=== PATIENT | male | born 1940 | race Caucasian/White ===

== ENCOUNTER 2018-12-27 02:50 | Observation (INO) | payer MEDICARE ==
[2018-12-27 03:35] LABS: Mean Corpuscular Volume 96.4 fL (78.0-98.0)
[2018-12-27 03:39] LABS: Hemoglobin 15.6 g/dL (14.0-18.0)
[2018-12-27 03:45] LABS: ALT (SGPT) 63 U/L (8-55); AST (SGOT) 106 U/L (5-34); Albumin 3.9 g/dL (3.4-4.8); Alkaline Phosphatase 88 U/L (40-150); Anion Gap 13 mmol/L (10-20); BUN (Urea Nitrogen) 15 mg/dL (8.4-25.7); Bilirubin, Total 0.4 mg/dL (0.2-1.2); Calc. Creatinine Clearance 0 mL/min (70-130); Calcium 9.5 mg/dL (7.8-10.44); Carbon Dioxide 25 mmol/L (23-31); Chloride 108 mmol/L (98-107); Estimated GFR-MDRD Greater than 90; Globulin 2.2 g/dL (2.4-3.5); Glucose 119 mg/dL (83-110); Potassium 3.8 mmol/L (3.5-5.1); Protein, Total 6.1 g/dL (5.8-8.1); Sodium 142 mmol/L (136-145)
[2018-12-27 03:49] LABS: #Eosinphils 0.2 thou/uL (0.0-0.7); #Lymphocytes 1.3 thou/uL (1.20-3.40); #Monocytes 0.5 thou/uL (0.11-0.59); #Neutrophils 6.6 thou/uL (1.40-6.50); %Basophils 0.3 % (0.0-1.0); %Eosinophils 2.5 % (0.0-10.0); %Lymphocytes 14.7 % (21.0-51.0); %Monocytes 6.3 % (0.0-10.0); %Neutrophils 76.4 % (42.0-75.0); Mean Corpuscular HGB CONC 33.6 g/dL (32.0-36.0); Mean Corpuscular Hemoglobin 32.4 pg (27.0-31.0); Mean Platelet Volume 9.6 fL (7.4-10.4); Platelet Count 109 thou/uL (130-400); Platelet Morphology Comment Appears Decreased; RBC Distribution Width 11.5 % (11.5-14.5); RBC Morphology Normal; Red Blood Cell (RBC) Count 4.81 mill/uL (4.70-6.10); White Blood Cell (WBC) Count 8.6 thou/uL (4.8-10.8)
[2018-12-27 03:50] LABS: Troponin I Less than 0.010 ng/mL (< 0.028)
[2018-12-27] MEDS ORDERED: Nitroglycerin 0.4 MG TAB (25 Tab Bottle) SL PRN (06:54)
[2018-12-27] MEDS ORDERED: Ondansetron PF 4 MG/2 ML Vial IVP PRN (06:54)
[2018-12-27] MEDS ORDERED: Ondansetron ODT 4 MG TAB PO PRN (06:55)
--- NOTE | 2018-12-27 07:44 | RAD ---
XR Chest 1 View Portable History: Chest pain Comparison: None. Findings: Mild elevation left hemidiaphragm. No pneumothorax or effusion. No consolidation. Multiple midline sternotomy wires. No acute osseous abnormality. Impression: Likely chronic elevation left hemidiaphragm. No acute intrathoracic abnormality.
[2018-12-27 08:05] LABS: Troponin I 0.015 ng/mL (< 0.028)
[2018-12-27] MEDS ORDERED: Acetaminophen 325 MG TAB PO PRN (09:11)
[2018-12-27] MEDS ORDERED: Lisinopril 10 MG TAB PO SCH (09:30)
[2018-12-27] MEDS ORDERED: Aspirin 81 mg Enteric Coated Tablet PO SCH (09:30)
[2018-12-27 10:46] LABS: Troponin I Less than 0.010 ng/mL (< 0.028)
[2018-12-27 11:29] VITALS: BMI 25.2
--- NOTE | 2018-12-27 13:08 | HP ---
CHIEF COMPLAINT: Chest pain. HISTORY OF PRESENT ILLNESS: This patient is a 78-year-old male, who presented via the emergency department by way of an ambulance and then helicopter. The patient lives in [facility]. He has a history of coronary artery disease with a 4-vessel [place] [address] Sears. The patient reports that he did not have a myocardial infarction prior to his surgery. He had angina and he sought help with assembly adjuster, Dr. Nima Preciado at phone #[phone]. At that time, the patient had a stress test, which he failed and subsequently underwent the bypass grafting. The patient was in his usual state of good health, in fact, recently went on a cruise. However, on the day of admission, the patient awoke around 2:00 in the morning to go to the bathroom and had severe 10/10 chest pain, which felt like an elephant sitting on his chest. He denied shortness of breath or nausea, but he had pallor and severe diaphoresis and radiation of the pain to the back. The patient subsequently awoke his , she called 911. She also gave him four baby aspirins to chew. She called the ambulance and on their arrival, the patient had EKG, subsequently got sublingual nitroglycerin. They called in a helicopter and took him around the corner to be airlifted here. He reports he had some improvement with the initial nitroglycerin in the ambulance. He got a nitroglycerin spray in the helicopter, which essentially relieved his pain. He is currently completely pain free. REVIEW OF SYSTEMS: All systems reviewed. All pertinent positives and negatives noted in the HPI. PAST MEDICAL HISTORY: Notable for the above-mentioned coronary artery disease. I spoke with his assembly adjuster, Dr. Preciado, who said he did actually have a stress test in December of 2015. At that time, he had some mild lateral ischemia, which they attributed to some known OM branch disease that was a poor target and the choice was made to treat him medically at that time. He has apparently done well subsequent to that until this particular episode. He also has hypertension. He had a small stroke in 1997, which has affected his balance. PAST SURGICAL HISTORY: Four-vessel CABG [place] [address] Sears, cholecystectomy in 2014. FAMILY HISTORY: Father had hypertension, diabetes, and kidney failure. His mother had cancer. SOCIAL HISTORY: The patient started smoking when he was 15 years of age. He smoked less than a pack per day. He quit in the early 90s. He is a daily consumer of alcohol, preferring vodka and bourbon, and he typically has 1 to 2 drinks per night. He denies any history of drugs. He is . He is full code and his would be his surrogate decision maker. CURRENT MEDICATIONS: 1. CoQ10 100 mg daily. 2. Crestor 5 mg daily. 3. Omeprazole 20 mg daily. 4. Metoprolol 100 mg daily. 5. Aspirin 81 mg daily. 6. Lisinopril 10 mg daily. PHYSICAL EXAMINATION: VITAL SIGNS: Temperature is 97.6, pulse 60, respirations 18, O2 saturation 98% on 2 L nasal cannula, and BP 123/61. GENERAL APPEARANCE: Healthy, age-appropriate male, in no distress. He is a bit hard of hearing, but awake, alert, and oriented. HEENT: CORNELIO. No OP lesions. Dry oral mucosa, but he is a mouth breather. NECK: Supple and symmetric with no lymphadenopathy, JVD, or bruits. HEART: Regular rate and rhythm without murmurs, gallops, or rubs. LUNGS: Clear to auscultation bilaterally with no wheezes or rales. ABDOMEN: Soft, nontender, and nondistended. Positive bowel sounds. No masses. No organomegaly. EXTREMITIES: No cyanosis, clubbing, or edema. PSYCHIATRIC: Normal affect and behavior. NEUROLOGIC: Spontaneous movement of all extremities. He has no focal deficits, and cognition is normal. LABORATORY DATA: White count 8.6, hemoglobin 15.6, platelets 109. Sodium 142, potassium 3.8, chloride 108, CO2 of 25, BUN 15, creatinine 0.77, glucose 119, calcium 9.5, total bilirubin 0.4, AST is 106, ALT 63, alkaline phosphatase 88. Initial troponin 0.01, subsequent 0.015. Chest x-ray shows an elevated left hemidiaphragm, likely chronic, no acute findings. EKG has no evidence of ischemic changes and he is in normal sinus rhythm. IMPRESSION AND PLAN: 1. Chest pain in a patient with a history of known coronary artery disease and mild lateral ischemia on a stress test in 2007. He is admitted to telemetry. He will have continued serial isoenzymes. I have discussed case with his assembly adjuster. He recommended repeat stress testing. However, we will have our assembly adjuster see him here as well. Given the nature of his disease, it is unclear to me if he might benefit from repeat heart catheterization. In the meantime, we will keep him on beta blockers, aspirin, and cholesterol management. Again, he is currently pain free. 2. Hypertension. Continue with lisinopril and metoprolol. 3. Hyperlipidemia. Continue with the Crestor. Job ID: [id number]
[2018-12-27] MEDS ORDERED: Communication Order-Pharmacy FS SCH (16:45)
--- NOTE | 2018-12-27 23:21 | CON ---
DATE OF CONSULTATION: HISTORY OF PRESENT ILLNESS: Boyd Dumas is a pleasant 78-year-old white male from [facility], who is admitted with chest discomfort. In 2013, he had episodes of nocturnal nausea. Ultimately, he was evaluated at [facility]. He had an abnormal stress test and underwent catheterization and finally bypass surgery was CABG x4. An op report has been requested; however, one is not available at this time. Also in 2016, he apparently had an abnormal nuclear scan which showed lateral ischemia. It was felt this probably due to an obtuse marginal branch that could not be bypassed. He does not exercise regularly. He then awoke last night at approximately 2 a.m. with chest pressure associated with shortness of breath. He felt like an elephant was sitting on his chest. The pain radiated somewhat to his back. His called 911 and gave him 4 baby aspirins. Ambulance was called and given sublingual nitroglycerin pill. He continued to have discomfort and helicopter was called to his house. He is transported from his house to [place]. During transport, he received sublingual nitroglycerin spray x1, and chest discomfort essentially resolved. He has not had recurrence of pain since admission. PAST MEDICAL HISTORY: Hypertension, hypercholesterolemia, coronary artery disease, history of stroke in 1997 which affected his balance. OPERATIONS: CABG x4 and cholecystectomy. MEDICATIONS: 1. Omeprazole 20 daily. 2. Aspirin 81 daily. 3. Metoprolol 100 mg XL daily. 4. Lisinopril 10 mg daily. 5. Crestor 5 mg daily. 6. CoQ10, 100 daily. ALLERGIES: NONE. SOCIAL HISTORY: He smoked 1 pack per day, but stopped approximately 20 years ago. He has 1 or 2 drinks per night. PHYSICAL EXAMINATION: VITAL SIGNS: Blood pressure 144/68, pulse of 58. HEENT: PERRL. NECK: Supple. CHEST: Clear. CARDIAC: S1 and S2 normal without any S3, S4, or murmurs. Carotid upstrokes normal without bruits. ABDOMEN: Normal bowel sounds without tenderness or organomegaly. EXTREMITIES: Revealed no clubbing, cyanosis, or edema. NEUROLOGICAL: Grossly intact. SKIN: Warm and dry. LABORATORY DATA: EKG reveals normal sinus rhythm and is unremarkable. Hemoglobin 15.6, hematocrit 46.4, white count 8600. Sodium 142, potassium 3.8, chloride 108, carbon dioxide 25, BUN 15, creatinine 0.77, glucose 119. AST 106, ALT 63. Cardiac enzymes are negative x3. IMPRESSION: 1. Nocturnal episodes of chest pressure, probably related to acute coronary syndrome. 2. Status post coronary artery bypass grafting x4. 3. Lateral ischemia on last Cardiolite, probably due to the obtuse marginal branch that could not be bypassed. 4. Hypertension. 5. Hypercholesterolemia. 6. Former smoker. PLAN: Situation discussed with the patient and his over the phone. It is recommended that he undergo cardiac catheterization. Risks of this been discussed including , myocardial infarction, dye reaction, vascular injury, CVA, transfusion, limb loss, renal loss, etc. Also risk of intervention with PTCA and stent placement were discussed including , myocardial infarction, emergent CABG, restenosis , stent thrombosis, vessel perforation, etc. He has never had any gastrointestinal bleeding. He does not have any upcoming surgery scheduled. Overall, it is recommended that a drug-eluting stent be placed if required. Job ID: [id number] AMIE
[2018-12-28 05:26] LABS: Cardiac Risk 2.6 (Less than 4.5)
[2018-12-28] MEDS: Lisinopril 10 MG TAB PO SCH (06:01)
[2018-12-28] MEDS: Rosuvastatin 5 MG TAB PO SCH (06:01)
[2018-12-28] MEDS: Sodium Chloride 0.9% 1,000 ML IV SCH ×4 (06:02→20:19)
[2018-12-28] MEDS: Aspirin Chewable 81 MG TAB PO SCH (06:02)
[2018-12-28] MEDS ORDERED: Lidocaine 1% (PF) 30 ML VIAL ONE (06:33)
[2018-12-28] MEDS ORDERED: Heparin 10,000 UNITS/1 ML VIAL ONE (06:33)
[2018-12-28] MEDS ORDERED: Fentanyl 100 MCG/2 ML VIAL ONE (07:08)
[2018-12-28] MEDS ORDERED: Midazolam HCl 2 mg/2 ml Vial ONE (07:08)
[2018-12-28] MEDS ORDERED: Bivalirudin 250 MG VIAL ONE (07:55)
[2018-12-28] MEDS ORDERED: Clopidogrel Bisulfate 300 MG TAB ONE (08:55)
[2018-12-28] MEDS ORDERED: Iopamidol 370 76% 100 ML VIAL ONE (14:16)
[2018-12-28] MEDS ORDERED: Iopamidol 370 76% 50 ML VIAL FS ONE (14:16)
--- NOTE | 2018-12-28 16:31 | EKG ---
Test Reason : POST CATH Blood Pressure : / mmHG Vent. Rate : 057 BPM Atrial Rate : 057 BPM P-R Int : 166 ms QRS Dur : 102 ms QT Int : 430 ms P-R-T Axes : 025 029 037 degrees QTc Int : 418 ms Sinus bradycardia Possible Inferior infarct , age undetermined Abnormal ECG When compared with ECG of 27-DEC-2018 02:53, (Unconfirmed) No significant change was found Confirmed by TJ LAM, SKelsey ([id number]) on 12/28/2018 4:31:14 PM Referred By: FLORENCE Confirmed By:DR. Vandana SPENCER MD
--- NOTE | 2018-12-28 17:14 | PDOC.HOSPP ---
- Subjective Subjective: Doing well post-cath. Happy to be alive today. - Objective Vital Signs & Weight: Vital Signs (12 hours) Temp Pulse Resp BP BP Pulse Ox 12/28/18 16:00 97.3 F L 65 17 122/60 92 L 12/28/18 06:01 129/62 Weight Weight 2.8 oz I&O: 12/27/18 12/28/18 12/29/18 06:59 06:59 06:59 Intake Total 1730 250 Output Total 1175 425 Balance 555 -175 Result Diagrams: 12/27/18 03:18 12/27/18 03:18 ROS - Medication Medications: Active Medications Generic Name Dose Route Start Last Admin Trade Name Freq PRN Reason Stop Dose Admin Aspirin 81 mg 12/28/18 09:00 12/28/18 06:02 Aspirin Chewable PO 81 mg DAILY CATHLEEN Administration Sodium Chloride 1,000 mls @ 100 mls/hr 12/28/18 06:00 12/28/18 06:02 Normal Saline 0.9% IV 1,000 mls .Q10H CATHLEEN Administration Lisinopril 10 mg 12/28/18 09:00 12/28/18 06:01 Zestril PO 10 mg DAILY CATHLEEN Administration Metoprolol Succinate 100 mg 12/28/18 09:00 12/28/18 06:01 Toprol Xl PO 100 mg DAILY CATHLEEN Administration Rosuvastatin Calcium 5 mg 12/28/18 09:00 12/28/18 06:01 Crestor PO 5 mg DAILY CATHLEEN Administration Sodium Chloride 10 ml 12/27/18 09:00 12/28/18 06:02 Flush - Normal Saline IVF 10 ml Q12HR CATHLEEN Administration - Exam NAD, awake alert Neck: supple, symmetric, no JVD, no thyromegaly, no lymphadenopathy, no carotid bruit Heart: RRR, no murmur, no gallops, no rubs, normal peripheral pulses Respiratory: CTAB, no wheezes, no rales, no ronchi, normal chest expansion, no tachypnea, normal percussion Gastrointestinal: soft, non-tender, non-distended, normal bowel sounds, no palpable masses, no hepatomegaly, no splenomegaly, no bruit Extremities: no cyanosis, no clubbing, no edema Musculoskeletal: normal tone, normal strength, no muscle wasting Psychiatric: normal affect, normal behavior, A&O x 3 Hosp A/P (1) Angina pectoris Code(s): I20.9 - ANGINA PECTORIS, UNSPECIFIED Status: Acute (2) CAD (coronary artery disease) Code(s): I25.10 - ATHSCL HEART DISEASE OF PLATIN[place] CORONARY ARTERY W/O ANG PCTRS Status: Acute (3) HTN (hypertension) Code(s): I10 - ESSENTIAL (PRIMARY) HYPERTENSION Status: Acute (4) HLD (hyperlipidemia) Code(s): E78.5 - HYPERLIPIDEMIA, UNSPECIFIED Status: Acute - Plan D/W Dr. Tenorio. Had balloon angioplasty of OM. Had one lesion that would not budge in OM. Medical management now. Watch over night. Recheck groin in am. DC in am on new meds if doing well.
[2018-12-28] MEDS ORDERED: Ondansetron ODT 4 MG TAB PO PRN (22:49)
[2018-12-28] MEDS ORDERED: Ondansetron PF 4 MG/2 ML Vial IVP PRN (22:49)
[2018-12-29 05:34] LABS: #Eosinphils 0.1 thou/uL (0.0-0.7); #Lymphocytes 1.5 thou/uL (1.20-3.40); #Monocytes 0.7 thou/uL (0.11-0.59); #Neutrophils 5.2 thou/uL (1.40-6.50); %Basophils 0.5 % (0.0-1.0); %Eosinophils 1.1 % (0.0-10.0); %Lymphocytes 19.4 % (21.0-51.0); %Monocytes 9.7 % (0.0-10.0); %Neutrophils 69.4 % (42.0-75.0); Hemoglobin 15.1 g/dL (14.0-18.0); Mean Corpuscular Hemoglobin 32.1 pg (27.0-31.0); Mean Corpuscular Volume 97.4 fL (78.0-98.0); Mean Platelet Volume 10.4 fL (7.4-10.4); Platelet Count 102 thou/uL (130-400); RBC Distribution Width 11.9 % (11.5-14.5); Red Blood Cell (RBC) Count 4.71 mill/uL (4.70-6.10); White Blood Cell (WBC) Count 7.5 thou/uL (4.8-10.8)
[2018-12-29 05:58] LABS: ALT (SGPT) 98 U/L (8-55); AST (SGOT) 95 U/L (5-34); Albumin 3.8 g/dL (3.4-4.8); Alkaline Phosphatase 114 U/L (40-150); Anion Gap 12 mmol/L (10-20); BUN (Urea Nitrogen) 12 mg/dL (8.4-25.7); Bilirubin, Total 0.6 mg/dL (0.2-1.2); Calc. Creatinine Clearance 85 mL/min (70-130); Carbon Dioxide 26 mmol/L (23-31); Chloride 105 mmol/L (98-107); Estimated GFR-MDRD Greater than 90; Globulin 2.4 g/dL (2.4-3.5); Glucose 101 mg/dL (83-110); Potassium 3.9 mmol/L (3.5-5.1); Protein, Total 6.2 g/dL (5.8-8.1); Sodium 139 mmol/L (136-145)
[2018-12-29] MEDS: Aspirin Chewable 81 MG TAB PO SCH (09:58)
[2018-12-29] MEDS: Rosuvastatin 5 MG TAB PO SCH (09:58)
[2018-12-29] MEDS: Lisinopril 10 MG TAB PO SCH (09:59)
[2018-12-29 12:49] VITALS: BP 134/64; TEMP 97.4
--- NOTE | 2018-12-29 15:50 | PDOC.CTH ---
Cardiology Progress Note - Subjective He is doing well. No chest pain. Right groin is without issues. - Objective Vital Signs Temp Pulse Pulse Pulse Resp BP BP 12/29/18 12:00 97.4 F L 60 18 12/29/18 09:59 129/62 12/29/18 09:38 66 73 115/55 L 12/29/18 07:38 98.0 F 66 18 12/29/18 04:00 98.4 F 69 20 BP BP BP Pulse Ox Pulse Ox Pulse Ox 12/29/18 12:00 134/64 97 12/29/18 09:59 12/29/18 09:38 134/69 97 96 12/29/18 07:38 117/56 L 95 12/29/18 04:00 103/52 L 92 L Weight 175 lb 4.8 oz 12/28/18 12/29/18 12/30/18 06:59 06:59 06:59 Intake Total 1730 1335 Output Total 1175 1315 Balance 555 20 - Physical Examination General/Neuro: alert & oriented x3, NAD Neck: no JVD present Lungs: unlabored respirations Heart: RRR Abdomen: NT/ND Extremities: other: (no edema. Right femoral exam, no bruits, no bruising. No masses. No hematoma.) - Telemetry Telemetry Rhythm: NSR - Labs Result Diagrams: 12/29/18 04:55 12/29/18 04:55 Troponin/CKMB Troponin I Less than 0.010 ng/mL (< 0.028) 12/27/18 10:11 - Assessment/Plan 1. Multivessel CAD 2. 3/4 grafts open. 3. Severer OM disease s/p POBA only. PLAN: - Continue medical therapy. - May discharge home at any time from cardiac perspective. - Will follow up with Dr. Tenorio in 4-6 weeks.
--- NOTE | 2018-12-29 17:21 | DIS ---
DATE OF ADMISSION: 12/27/2018 DATE OF DISCHARGE: 12/29/2018 DISCHARGE DIAGNOSES: 1. Chest pain. 2. Coronary artery disease. 3. Hypertension. 4. Hyperlipidemia. HISTORY OF PRESENT ILLNESS: This patient is a 78-year-old male, who has a dairy cattle farm manager in [place], who presented here with an episode of chest pain. The patient had a history of a prior coronary artery bypass procedure by Dr. Sears. The patient was following with Dr. Nima Preciado, #[phone], and had seen him within the last 6 months or so and had a good evaluation. The patient was awakened at night on the day of admission with a 10/10 chest pain, radiating to his back, reminiscent of his pain prior to his coronary artery bypass surgery. He called ambulance, got four baby aspirins, was given nitroglycerin in the ambulance, taken to a helicopter and flown to this facility. In flight, the patient received another nitroglycerin, and the combination of the two resolved his pain essentially entirely. The patient's initial presentation was notable for normal troponins without significant EKG changes. However, given his history, it was still concerning for significant angina. I spoke with the patient's dairy cattle farm manager and got some additional history, and it was clear that the patient had a difficult OM lesion without good bypass targets. He subsequently had a stress test in December of 2015, showing some lateral ischemia, which was being treated medically. HOSPITAL COURSE: The patient was admitted to the hospital on telemetry in observation status. He had serial troponins, which remained negative. He remained pain free. He was seen in consultation by Cardiology and their recommendation was for heart catheterization. When the patient underwent this procedure on 12/28/2018, he was noted to have some disease in the OM1 branch. The proximal lesion was bypassed and angioplasty performed on the more distal lesions. However, the most proximal lesion could not be angioplastied even with larger balloon and higher pressures. Therefore, the subsequent plan is for medical management. The patient was started on Ranexa, observed on the following morning. His vital signs remained stable. His cath site looked good. He felt very well, had no further complaints. PHYSICAL EXAMINATION: VITAL SIGNS: Temperature was 97.4, pulse 60, BP 134/64, respirations 18, O2 saturation 97% on room air. GENERAL APPEARANCE: Age-appropriate male, in no distress. HEART: Regular rate and rhythm with no murmurs, gallops, or rubs. LUNGS: Clear to auscultation bilaterally. Good chest wall expansion and air exchange. ABDOMEN: Soft, nontender, and nondistended. Positive bowel sounds. No masses and no organomegaly. EXTREMITIES: No cyanosis, clubbing, or edema. DISPOSITION: The patient is discharged to home. MEDICATIONS: He will continue with his usual home medications including; 1. CoQ10, 100 mg daily. 2. Rosuvastatin 5 mg daily. 3. Omeprazole 20 mg daily. 4. Metoprolol succinate 100 mg daily. 5. Aspirin 81 mg daily. 6. Lisinopril 10 mg daily. 7. He will have the addition of Ranexa 500 mg p.o. b.i.d. DIET: He is to have a regular heart healthy diet. ACTIVITY: As tolerated. FOLLOWUP: He should follow up with primary care physician and Dr. Tenorio or Dr. Preciado. He can return to the hospital should he have any problems prior to that time. Job ID: [id number]
--- NOTE | 2019-01-01 11:10 | CCL ---
SURGEON: Wu Tenorio M.D. INDICATIONS: Acute coronary syndrome. PROCEDURE: 1. Left heart catheterization. 2. Selective coronary arteriography. 3. Left ventriculography. 4. Bypass graft angiography. 5. VELOZ injection. 6. Aortic root injection. 7. PTCA of the circumflex. DESCRIPTION OF PROCEDURE: The patient was brought to the Cardiac Financial Representative and the right femoral artery was prepped and draped. The patient was given versed 1 mg IV and Fentanyl 25 mg IV. Later in the case he was given another 1 mg versed and 25 mg of Fentanyl for continuous moderate sedation with monitoring. 1% lidocaine was infiltrated to the right femoral artery. A 6 [place] sheath was placed into the [facility] t femoral artery. 3000 units of heparin was given. A 6 [place] angulated pigtail was inserted and pressures were obtained. Left ventriculogram was performed using 30 ml of contrast at 12 ml/s in an LAINEZ 30 degree projection. Pressures were obtained and the pigtail was removed. A 6 [place] Fuad left-4 followed by a 6 [place] Fuad right-4 was used for coronary arteriography. Right 4 was also used to opacify bypass grafts. This was directe d into the left subclavian but did not engage the VELOZ well. This was then exchanged over a wire for a 6 [place] ERICH catheter for VELOZ injection. The 6 [place] angulated pigtail was then reinserted. Aorti c injection was performed using 30 mL of contrast at 15 mL/s in an BURUNDIAN 50 degree projection. Only one bypass graft could be seen to the LAD. 6 [place] Fuad left 4 guide catheter was inserted. Angiomax bolus and drip were started. Floppy cho ice wire was advanced into the circumflex and into the obtuse marginal. It was great difficulty in wi ring the 99% branch that had the previously occluded bypass graft. The wire was removed for reshaping and finally the 99% branch could be crossed. Emerge 1.5 x 15 mm balloon was inserted but would not c ross. This was then removed and Emerge 1.2 x 12 mm push balloon was inserted but also would not cross the area. Balloon and wire guide were removed. A 6 [place] Voda 3.5 guide was inserted. A guide liner catheter was inserted. An extra support wire was inserted. Emerge 2.5 x 20 mm balloon was then used to predilate the circumflex-obtuse marginal. The 99% area could not be crossed. Multiple areas in the first obtuse marginal were dilated. The balloon was then removed. The patient was given Plavix 600 m g p.o. Synergy 2.25 x 16 mm stent was then inserted but would not advance through the lesion just pro ximal to the 99% branch lesion. This was removed and Emerge 3.0 x 15 mm balloon was then inserted to again predilate the obtuse marginal. This area would not dilate. This was removed and Emerge NC 3.25 x 15 mm balloon was inserted and again the area did not dilate. It was felt that no further intervent ion should be offered with nonexpansion of this lesion. Guide wire and balloon were removed as well a s guide catheter. The guide liner was removed. RESULTS: PRESSURES: Aorta 123/55, mean of 82. Left Ventricle 129/13. LEFT VENTRICULOGRAM: There was normal left ventricular contractility with ejection fraction of 50-55%. AORTIC ROOT INJECTION: Only one vein graft was seen, that to the LAD. CORONARY ARTERIOGRAPHY: 1. The left main was normal. 2. The LAD had a 30% proximal stenosis and total occlusion in its mid-section. 3. The circumflex-first obtuse marginal had a 90%, 80%, 90% lesion. After a branch point there was a 99% lesion and then the occluded obtuse marginal graft would be seen to fill retrograde. 4. The ramus had an 80% lesion. 5. The right coronary artery had a 20% proximal stenosis and a 60% right posterolateral stenosis. BYPASS GRAFTS: 1. The saphenous vein graft to the LAD was patent. 2. The VELOZ to the LAD at a more proximal location than the vein graft was occluded. 3. The obtuse marginal graft was occluded. INTERVENTION: Inability to expand the 90% lesion in the first obtuse marginal. IMPRESSION: 1. Three vessel coronary artery disease. 2. One bypass graft patent. 3. Normal left ventricular function. Unable to expand the first obtuse marginal lesion.
== END 2018-12-29 17:10 | disposition home or self-care (01) ==
LOC: ERS 02:50 → 2NO 04:17
PROVIDERS: ADMIT Hospitalist; ATTEND Hospitalist
PROC: 4A023N7 Measurement of Cardiac Sampling and Pressure, Left Heart, Percutaneous Approach (ICD-10-PCS; principal; 2018-12-27)
PROC: B2111ZZ Fluoroscopy of Multiple Coronary Arteries using Low Osmolar Contrast (ICD-10-PCS; 2018-12-27)
PROC: B2181ZZ Fluoroscopy of Left Internal Mammary Bypass Graft using Low Osmolar Contrast (ICD-10-PCS; 2018-12-27)
PROC: B2121ZZ Fluoroscopy of Single Coronary Artery Bypass Graft using Low Osmolar Contrast (ICD-10-PCS; 2018-12-27)
DX: R07.2 Precordial pain (principal); I25.10 Atherosclerotic heart disease of native coronary artery without angina pectoris; I25.82 Chronic total occlusion of coronary artery; I10 Essential (primary) hypertension; E78.5 Hyperlipidemia, unspecified; Z86.73 Personal history of transient ischemic attack (TIA), and cerebral infarction without residual deficits; Z95.1 Presence of aortocoronary bypass graft; Z87.891 Personal history of nicotine dependence; Z79.82 Long term (current) use of aspirin; Z79.899 Other long term (current) drug therapy
CPT/HCPCS: 71045; 80053 ×2; 80061; 84484 ×2; 85025 ×2; 85347; 92920; 93005 ×3; 93459; 93567; 93798; 94760; 99285; C1725 ×3; C1769 ×2; C1874; C1887; G0378 ×4; 36415; 93010; 99152; 99153; J0583; J1644; J2001; J2250; J3010; Q9967